=== PATIENT | female | born 1980 | race Caucasian/White ===

== ENCOUNTER → 2021-07-02 13:04 | Outpatient (CLI) | payer MEDICAID, SELFPAY ==
--- NOTE | 2021-07-02 13:00 | US_ITS ---
STUDY: ULTRASOUND OF THE FEMALE PELVIS - COMPLETE REASON FOR EXAM: Female, 40 years old. PROLAPSE LMP: TECHNIQUE: Transabdominal and Transvaginal TECHNICAL QUALITY: Adequate. COMPARISON: None. FINDINGS: The uterus is anteverted and is in a midline position. The uterus measures 11.5 cm x 11.5 cm x 9.9 cm. There is a Nabothian cyst of the cervix. The endometrium measures 12 mm in thickness, and is hyperechoic. There is no demonstrated endometrial mass. There is a large 12.9 cm x 7.8 cm x 7.2 cm fibroid along the posterior aspect of the uterus. I.U.D. - The patient does not have an I.U.D. The right ovary is visualized. The right ovary measures 2.7 cm x 2.8 cm x 1.3 cm. There is no right ovarian cyst or ovarian mass. There is no visualized right adnexal mass or complex lesion. There is normal arterial and normal venous vascularity. The left ovary is non-visualized. There is no fluid in the cul-de-sac. The pre void volume of the bladder was 246 ml. US/Transvaginal Non- IMPRESSION: Large fibroid uterus. The fibroid measures 12.9 cm x 7.8 cm x 7.2 cm Electronically Signed: Rubio Monzon MD at 15:26 EDT , Service support ,
--- NOTE | 2021-07-02 13:11 | US_ITS ---
STUDY: ULTRASOUND OF THE FEMALE PELVIS - COMPLETE REASON FOR EXAM: Female, 40 years old. PROLAPSE LMP: TECHNIQUE: Transabdominal and Transvaginal TECHNICAL QUALITY: Adequate. COMPARISON: None. FINDINGS: The uterus is anteverted and is in a midline position. The uterus measures 11.5 cm x 11.5 cm x 9.9 cm. There is a Nabothian cyst of the cervix. The endometrium measures 12 mm in thickness, and is hyperechoic. There is no demonstrated endometrial mass. There is a large 12.9 cm x 7.8 cm x 7.2 cm fibroid along the posterior aspect of the uterus. I.U.D. - The patient does not have an I.U.D. The right ovary is visualized. The right ovary measures 2.7 cm x 2.8 cm x 1.3 cm. There is no right ovarian cyst or ovarian mass. There is no visualized right adnexal mass or complex lesion. There is normal arterial and normal venous vascularity. The left ovary is non-visualized. There is no fluid in the cul-de-sac. The pre void volume of the bladder was 246 ml. US/Pelvic (Non ) IMPRESSION: Large fibroid uterus. The fibroid measures 12.9 cm x 7.8 cm x 7.2 cm Electronically Signed: Rubio Monzon MD at 15:26 EDT , Service support ,
--- NOTE | 2021-07-02 13:12 | US_ITS ---
STUDY: RENAL ULTRASOUND - COMPLETE REASON FOR EXAM: Female, 40 years old. Urinary retention . TECHNIQUE: Ultrasound evaluation of the kidneys was performed with real-time and static orourke-scale imaging. COMPARISON: None. FINDINGS: RIGHT KIDNEY: Normal location of the right kidney, which is normal in size. The right kidney measures 11.5 cm x 3.9 cm x 4.9 cm. There is a normal cortex of the right kidney. The renal cortex measures 2.5 cm. There is no right renal mass or cyst. There are no right renal calculi. Mild right hydronephrosis. DISTAL RIGHT URETER: There is non-visualization of the distal right ureter. There is no demonstrated right ureterovesical junction calculus. There is a visualized right ureteral jet. LEFT KIDNEY: Normal location of the left kidney, which is normal in size. The left kidney measures 11.5 cm x 5 cm x 5.5 cm. There is a normal cortex of the left kidney. The renal cortex measures 1.9 cm. There is no left renal mass or cyst. There are no left renal calculi. There is no left hydronephrosis. DISTAL LEFT URETER: There is non-visualization of the distal left ureter. There is no demonstrated left ureterovesical junction calculus. There is a visualized left ureteral jet. BLADDER: The distended urinary bladder has a volume of 354 ml. The empty urinary bladder has a volume of 68 ml. There is a normal wall thickness of the distended urinary bladder. There is no demonstrated mass within the urinary bladder. There are no demonstrated bladder calculi. US/Kidney and Bladder IMPRESSION: Mild degree of right hydronephrosis. Electronically Signed: Rubio Monzon MD at 15:23 EDT , Service support ,
== END ==
PROVIDERS: Referring Provider Urology; Visit Provider Urology
DX: R33.9 Retention of urine, unspecified (principal); N81.4 Uterovaginal prolapse, unspecified
CPT/HCPCS: 76770; 76830; 76856